=== PATIENT | female | born 1955 | race Caucasian/White ===

== ENCOUNTER 2019-03-02 16:42 | Inpatient (IN) | payer OTHER ==
[~2019-03-02] VITALS: Ht 170.2 cm; Wt 69.4 kg
[2019-03-02 16:53] VITALS: BP_SYST 191
--- NOTE | 2019-03-02 16:55 | NUR ---
Patient to ER bed 4 to gown for evaluation. Side rails up.
--- NOTE | 2019-03-02 17:00 | NUR ---
ER at bedside examining patient.
[2019-03-02] MEDS ORDERED: NACL 0.9% 1,000 ML IV ONE (17:02)
--- NOTE | 2019-03-02 17:13 | NUR ---
Pt bib Care BLS for extended stay hotel c/o increasing weakness,frequent fall and inability to perform ADL's . Pt is poor historian.
--- NOTE | 2019-03-02 17:20 | NUR ---
Radiology at bedside
--- NOTE | 2019-03-02 17:22 | NUR ---
# 20 gauge angiocath placed to LAC. Use of asceptic technique. Opsite placed over site. Blood return noted. Blood for lab drawn from site. Flushed with 10 cc of normal saline. No evidence of infiltration noted. Patient tolerated well.
--- NOTE | 2019-03-02 17:30 | NUR ---
# 14 FR straight catheter with use of sterile technique. Immediate return of 50 cc yellow urine noted. Pt tolerated procedure well.
[2019-03-02 17:31] LABS: EOSINOPHILS # (AUTO) 0.1 K/uL (0.0-0.4); EOSINOPHILS % (AUTO) 1.4 % (0.0-4.0); HEMATOCRIT 44.4 % (36-48); HEMOGLOBIN 15.1 g/dL (12.0-16.0); LYMPHOCYTES # (AUTO) 1.8 K/uL (1.0-5.5); LYMPHOCYTES % (AUTO) 33.3 % (20.5-51.5); MEAN CORPUSCULAR HEMOGLOBIN 27 pg (27-31); MEAN CORPUSCULAR HGB CONC 34 % (32-36); MEAN CORPUSCULAR VOLUME 78 fL (79.0-98.0); MONOCYTES # (AUTO) 0.5 K/uL (0.0-1.0); MONOCYTES % (AUTO) 9.3 % (1.7-9.3); PLATELET COUNT (AUTO) 256 K/uL (130-430); RED CELL DISTRIBUTION WIDTH 15.8 % (9.0-15.0); WHITE BLOOD COUNT (AUTO) 5.4 K/uL (4.8-10.8)
[2019-03-02 17:38] LABS: BASOPHILS % (AUTO) 0.2 % (0.0-2.0); NEUTROPHILS # (AUTO) 3.1 K/uL (1.8-7.7); NEUTROPHILS % (AUTO) 55.8 % (40.0-70.0)
[2019-03-02 17:43] LABS: CALCIUM 11.3 mg/dL (8.4-11.0); CREATININE 0.79 mg/dL (0.55-1.30); POTASSIUM 3.5 mmol/L (3.5-5.1)
[2019-03-02 17:49] LABS: ALBUMIN 3.6 g/dL (3.4-4.8); TOTAL BILIRUBIN 0.6 mg/dL (0.0-1.0)
[2019-03-02] MEDS ORDERED: KETOROLAC TROMETHAMINE 30 MG VIAL IVP ONE (18:00)
[2019-03-02] MEDS ORDERED: cefTRIAXone 1 GM IVPB PREMIX 50 ML IV ONE (18:00)
[2019-03-02 18:14] LABS: BILIRUBIN,URINE 1+ (NEGATIVE); BLOOD, URINE 1+ (NEGATIVE); CLARITY/URINE CLEAR (CLEAR); COLOR,URINE YELLOW (YELLOW); GLUCOSE,URINE NEGATIVE (NEGATIVE); KETONES,URINE 2+ (NEGATIVE); LEUKOCYTE ESTERASE ,URINE NEGATIVE (NEGATIVE); NITRITE, URINE NEGATIVE (NEGATIVE); PROTEIN URINE 1+ (NEGATIVE); UROBILINOGEN,URINE 0.2 (0.2-1.0)
[2019-03-02 18:34] LABS: BACTERIA,URINE FEW /HPF (None Seen)
[2019-03-02 18:35] LABS: MUCUS,URINE 3+ /LPF (None Seen)
--- NOTE | 2019-03-02 18:40 | NUR ---
Patient will be admitted to care of . Admitted to Telemetry unit. Will go to room 122A. Belongings list completed. Complete and up to date summary report printed. SBAR report to be given at bedside with opportunity for questions.
--- NOTE | 2019-03-02 18:43 | NUR ---
Medication reconciliation completed with information provided by pt. Any prior medication reconciliation on file was reviewed and corrected.
--- NOTE | 2019-03-02 19:05 | NUR ---
ADMISSION NOTE Received patient from ER via tamie, received report from ROZINA ALTMAN. Patient admitted with diagnosis of PNEUMONIA. Patient oriented to hospital routine, call light, toileting and safety-patient verbalized understanding.
--- NOTE | 2019-03-02 20:30 | NUR ---
INITIAL NOTE AT INITIAL ASSESSMENT, PATIENT IS RESTING IN BED, STABLE, NO SIGNS OF RESPIRATORY DISTRESS. PATIENT VERBALIZES TOLERABLE PAIN. PLAN OF CARE FOR THE EVENING IS COMMUNICATED WITH THE PATIENT. PATIENT SUCCESSFULLY DEMONSTRATES USAGE OF CALL LIGHT AT THIS TIME. BED IS LOCKED, ALARMED, AND AT THE LOWEST LEVEL. FALL, SAFETY, AND RESPIRATORY PRECAUTIONS WILL BE TAKEN THROUGHOUT THE SHIFT.
[2019-03-02 20:56] VITALS: BP_SYST 149
[2019-03-02] MEDS ORDERED: FLU VACC TS2019(65UP)/MF59C/PF 45 MCG/0.5 ML SYRINGE I.M. PRN (21:00)
--- NOTE | 2019-03-02 22:30 | NUR ---
HYGIENE CARE NOTE HYGIENE CARE IS PROVIDED AT THIS TIME, PATIENT TOLERATED WELL. FRESH LINEN IS PROVIDED, SHE IS REPOSITIONED FOR COMFORT. AT THIS TIME, PATIENT IS RESTING IN BED, STABLE, NO SIGNS OF RESPIRATORY DISTRESS. CALL LIGHT IS WITHIN REACH. BED IS LOCKED, ALARMED, AND AT THE LOWEST LEVEL.
[2019-03-02] MEDS ORDERED: IPRATROPIUM BROM 0.5 MG/2.5 ML VIAL.NEB (ATROVENT) INH PRN (23:30)
[2019-03-03] MEDS ORDERED: AZITHROMYCIN 500 MG in NS 250 ML IV SCH ×2
[2019-03-03] MEDS: HYDROcodone/ACETAMIN 5-325 MG TAB (NORCO/ VICODIN) PO PRN ×2 (00:19→08:51)
[2019-03-03] MEDS: ONDANSETRON HCL 4 MG/2 ML VIAL IVP PRN (00:19)
[2019-03-03] MEDS: NACL 0.9% 1,000 ML IV SCH ×2 (00:20→12:46)
[2019-03-03 00:30] VITALS: BP_SYST 145
--- NOTE | 2019-03-03 00:30 | NUR ---
PAIN NOTE PRN MEDICATION GIVEN FOR PATIENT'S PAIN AND NAUSEA COMPLAINT. SHE IS OTHERWISE STABLE. PATIENT IS RESTING IN BED, NO SIGNS OF RESPIRATORY DISTRESS. BED IS LOCKED, ALARMED, AND AT THE LOWEST LEVEL.
[2019-03-03 02:19] VITALS: BP_SYST 191
--- NOTE | 2019-03-03 02:30 | NUR ---
NOTE PATIENT IS SLEEPING, STABLE, NO SIGNS OF RESPIRATORY DISTRESS. BED IS LOCKED, ALARMED, AND AT THE LOWEST LEVEL.
[2019-03-03] MEDS ORDERED: ACETAMINOPHEN 325 MG TABLET PO PRN (04:00)
--- NOTE | 2019-03-03 04:00 | NUR ---
DR. NI ROUNDS DR. NI IS AT BEDSIDE AT THIS TIME DISCUSSING HER PLAN OF CARE FOR THE PATIENT. PATIENT IS STABLE, NO SIGNS OF RESPIRATORY DISTRESS. BED IS LOCKED, ALARMED, AND AT THE LOWEST LEVEL.
--- NOTE | 2019-03-03 05:00 | NUR ---
NOTE PATIENT IS SLEEPING, STABLE, NO SIGNS OF RESPIRATORY DISTRESS. BED IS LOCKED, ALARMED, AND AT THE LOWEST LEVEL.
--- NOTE | 2019-03-03 06:45 | NUR ---
CLOSING NOTE PATIENT SLEPT WELL THROUGHOUT THE NIGHT. AT THIS TIME, SHE IS RESTING IN BED, STABLE, NO SIGNS OF RESPIRATORY DISTRESS. CALL LIGHT IS WITHIN REACH. BED IS LOCKED, ALARMED, AND AT THE LOWEST LEVEL. FALL, SAFETY, AND RESPIRATORY PRECAUTIONS HAVE BEEN IN PLACE THROUGHOUT THE SHIFT. WILL CONTINUE TO MONITOR UNTIL SHIFT REPORT IS GIVEN AT BEDSIDE TO AM NURSE.
[2019-03-03 06:51] LABS: BASOPHILS # (AUTO) 0.1 K/uL (0.0-0.2); BASOPHILS % (AUTO) 1.2 % (0.0-2.0); EOSINOPHILS # (AUTO) 0.2 K/uL (0.0-0.4); EOSINOPHILS % (AUTO) 2.4 % (0.0-4.0); HEMATOCRIT 40.4 % (36-48); HEMOGLOBIN 13.7 g/dL (12.0-16.0); LYMPHOCYTES % (AUTO) 27.6 % (20.5-51.5); MEAN CORPUSCULAR HEMOGLOBIN 27 pg (27-31); MEAN CORPUSCULAR HGB CONC 34 % (32-36); MEAN CORPUSCULAR VOLUME 78 fL (79.0-98.0); MONOCYTES # (AUTO) 0.7 K/uL (0.0-1.0); MONOCYTES % (AUTO) 9.9 % (1.7-9.3); NEUTROPHILS # (AUTO) 4.3 K/uL (1.8-7.7); NEUTROPHILS % (AUTO) 58.9 % (40.0-70.0); PLATELET COUNT (AUTO) 239 K/uL (130-430); RED BLOOD CELL COUNT(AUTO) 5.16 MIL/uL (4.2-6.2); WHITE BLOOD COUNT (AUTO) 7.2 K/uL (4.8-10.8)
--- NOTE | 2019-03-03 06:53 | NUR ---
Nutrition Update Tigre Scale 15 noted. Pt admitted for Pneumonia Diet: 2gm Na BMI: 24 kg/m2 RD to follow per nutrition care standards.
[2019-03-03 07:01] LABS: ALANINE AMINOTRANSFERASE 12 U/L (12-78); ALBUMIN 2.9 g/dL (3.4-4.8); ANION GAP 5 (5-15); ASPARTATE AMINOTRANSFERASE 21 U/L (10-37); CALCIUM 10.2 mg/dL (8.4-11.0); CHLORIDE 106 mmol/L (98-107); CREATININE 0.72 mg/dL (0.55-1.30); GLUCOSE 105 mg/dL (70-99); POTASSIUM 3.6 mmol/L (3.5-5.1); SODIUM SERUM 141 mmol/L (136-145); TOTAL BILIRUBIN 0.6 mg/dL (0.0-1.0); UREA NITROGEN, BLOOD 34 mg/dL (8-21)
[2019-03-03 07:03] LABS: GFR AFRICAN AMERICAN 105 mL/min (>90)
[2019-03-03 07:12] LABS: PROTHROMBIN TIME > 90.0 SECS (9.5-12.5)
--- NOTE | 2019-03-03 07:50 | NUR ---
OPENING NOTE RECEIVED PATIENT AWAKE IN BED. ROOM AIR. NO ACUTE DISTRESS. NO SOB. RESPIRATION EVEN AND UNLABORED. SKIN WARM AND DRY TO TOUCH. IV INTACT AND PATENT. DISCUSSED PLAN OF CARE. BILAT SCDs IN PLACE. BED IN LOW AND LOCKED POSITION. SIDERAIL UP X3. BED ALARM ON. CALL LIGHT IN REACH. CONT TO MONITOR
[2019-03-03 08:00] VITALS: BP_SYST 154
--- NOTE | 2019-03-03 08:04 | NUR ---
MD NAT GUZMAN CALLED AT SPOKE WITH DR.REDDY ROBERSON [employer].
--- NOTE | 2019-03-03 08:45 | NUR ---
PHYSICAL THERAPY ORDER WAS RECEIVED AND THE CHART REVIEWED. SPOKE WITH RN AND AGREED TO HOLD EVALUATION UNTIL MD EXAMINATION DUE TO HIGH LAB VALUES FOR PT AND INR.
--- NOTE | 2019-03-03 08:52 | NUR ---
pain PATIENT C/O 6/10 BACK PAIN. VITAL SIGN STABLE. NORCO ADMINISTERED ORDERED, GORGE WELL. TEACHING DONE ON MEDICATION AND ASE. CONT TO MONITOR
[2019-03-03] MEDS: LORazepam 2 MG/ML VIAL IVP PRN (09:40)
--- NOTE | 2019-03-03 10:00 | NUR ---
/OFF UNIT SEEN AND EXAMINED BY AT BEDSIDE. THEN PATIENT TAKEN OFF UNIT VIA GURNEY TO MRI; PATIENT STABLE
--- NOTE | 2019-03-03 11:05 | NUR ---
ON UNIT FROM MRI PATIENT STABLE. AWAKE. DENIES PAIN. ALL NEEDS MET. CALL LIGHT IN REACH. CONT TO MONITOR
[2019-03-03 11:35] LABS: INR 1.1 (0.8-1.2)
--- NOTE | 2019-03-03 13:00 | NUR ---
NOTE PATIENT UP IN BED TALKING TO NEPHEW. DENIES PAIN AT THIS TIME. NO ACUTE DISTRESS. ALL NEEDS MET. CALL LIGHT IN REACH. CONT TO MONITOR
[2019-03-03 13:01] VITALS: BP_SYST 140
[2019-03-03 16:32] VITALS: BP_SYST 156
--- NOTE | 2019-03-03 16:50 | NUR ---
NOTE PATIENT RESTING IN BED. NO S/SX PAIN. NOTED RISE/FALL CHEST. NO ACUTE DISTRESS. NO SOB. SKIN WARM AND DRY TO TOUCH. ALL NEEDS MET. CONT TO MONITOR
[2019-03-03] MEDS: cefTRIAXone 1 GM IVPB PREMIX 50 ML IV SCH (17:17)
--- NOTE | 2019-03-03 18:38 | NUR ---
CLOSING NOTE PATIENT STABLE. SITTING UP IN BED. NO ACUTE DISTRESS. NO SOB. SKIN WARM AND DRY. ALL NEEDS MET. BED IN LOW AND LOCKED POSITION. SIDERAIL UPX3. BED ALARM ON. CALL LIGHT IN REACH. CONT TO MONITOR. WILL ENDORSE TO ONCOMING SHIFT.
--- NOTE | 2019-03-03 19:20 | NUR ---
Opening Note Received patient, resting in bed, awake. No s/sx of distress. Nonlabored breathing on room air. IVF infusing well via IV to LAC. Bed locked in lowest position, side rails up 3x, bed alarm on and call light in reach. Updated board and reviewed plan of care.
[2019-03-03 20:00] VITALS: BP_SYST 159
[2019-03-03] MEDS ORDERED: AZITHROMYCIN 500 MG in NS 250 ML IV ONE (20:00)
[2019-03-03] MEDS: FAMOTIDINE 20 MG TABLET PO SCH (20:33)
--- NOTE | 2019-03-03 20:41 | NUR ---
Medications Due medications given. Educated on side effects and she verbalized understanding. Removed bed tray and provided ice water and gelatin snack. No further needs. Will monitor.
[2019-03-03] MEDS: HYDROcodone/ACETAMIN 10-325 MG TAB PO PRN (22:12)
--- NOTE | 2019-03-03 22:17 | NUR ---
c/o of back pain Patient reporting back pain, 10/12. She was repositioned 20 minutes earlier by nurse transition assistant and is requesting medication. Administered Cylinder for severe pain as ordered. Will monitor. Safety precautions in place and call light w/in reach.
--- NOTE | 2019-03-04 00:15 | NUR ---
Rounds Patient resting w/ eyes closed, symmetrical rise and fall of chest, nonlabored breathing noted. IVF infusing well. Safety precautions in place and call light w/in reach.
[2019-03-04 00:38] VITALS: BP_SYST 100
--- NOTE | 2019-03-04 02:32 | NUR ---
Rounds Patient resting w/ eyes closed, symmetrical rise and fall of chest. IVF infusing well. Bed alarm on and call light w/in reach.
[2019-03-04] MEDS: NACL 0.9% 1,000 ML IV SCH ×2 (04:12→17:20)
[2019-03-04] MEDS: ONDANSETRON HCL 4 MG/2 ML VIAL IVP PRN ×3 (04:12→13:21)
--- NOTE | 2019-03-04 04:15 | NUR ---
Nausea - Zofran Patient awakened by IV pump alarm and has nausea. Administered Zofran for nausea as ordered. IVF fluids empty. Hung new bag of NS and infusing at 75 ml/hr as ordered. Patient reports nausea feeling is decreased and requested a salt cracker, it was provided. Will continue to monitor.
[2019-03-04] MEDS ORDERED: AZITHROMYCIN 250 MG TABLET PO SCH (06:00)
--- NOTE | 2019-03-04 07:30 | NUR ---
received SBAR from night worker,pt resting well in bed,care assumed.
[2019-03-04 07:59] LABS: BASOPHILS # (AUTO) 0.1 K/uL (0.0-0.2); BASOPHILS % (AUTO) 0.9 % (0.0-2.0); EOSINOPHILS # (AUTO) 0.1 K/uL (0.0-0.4); EOSINOPHILS % (AUTO) 1.6 % (0.0-4.0); HEMATOCRIT 38.2 % (36-48); HEMOGLOBIN 12.9 g/dL (12.0-16.0); LYMPHOCYTES # (AUTO) 1.7 K/uL (1.0-5.5); MEAN CORPUSCULAR HEMOGLOBIN 26 pg (27-31); MEAN CORPUSCULAR HGB CONC 34 % (32-36); MEAN CORPUSCULAR VOLUME 78 fL (79.0-98.0); MONOCYTES # (AUTO) 0.5 K/uL (0.0-1.0); MONOCYTES % (AUTO) 7.1 % (1.7-9.3); NEUTROPHILS # (AUTO) 5.2 K/uL (1.8-7.7); NEUTROPHILS % (AUTO) 68.4 % (40.0-70.0); PLATELET COUNT (AUTO) 186 K/uL (130-430); RED BLOOD CELL COUNT(AUTO) 4.89 MIL/uL (4.2-6.2); RED CELL DISTRIBUTION WIDTH 16.1 % (9.0-15.0); WHITE BLOOD COUNT (AUTO) 7.6 K/uL (4.8-10.8)
[2019-03-04 08:29] LABS: INR 1.1 (0.8-1.2); PROTHROMBIN TIME 11.2 SECS (9.5-12.5)
[2019-03-04 08:37] LABS: ALBUMIN 2.5 g/dL (3.4-4.8); CALCIUM 9.2 mg/dL (8.4-11.0); CREATININE 0.59 mg/dL (0.55-1.30); POTASSIUM 3.4 mmol/L (3.5-5.1); TOTAL BILIRUBIN 0.4 mg/dL (0.0-1.0)
[2019-03-04] MEDS: FAMOTIDINE 20 MG TABLET PO SCH (08:58)
[2019-03-04] MEDS ORDERED: CALCITONIN SALMON,SYNTHETIC 3.7 ML SPRAY.PUMP NS SCH (09:00)
--- NOTE | 2019-03-04 09:00 | NUR ---
c/o nausea again,give zofran 4mg iv as prn order,and am meds due,continue IVF.
[2019-03-04] MEDS ORDERED: POTASSIUM CHLORIDE 20 MEQ TAB.PRT.SR PO ONE (09:30)
[2019-03-04 10:30] VITALS: BP_SYST 142
[2019-03-04] MEDS ORDERED: CALC3.8S NS (11:12)
[2019-03-04] MEDS ORDERED: AZIT250T PO (11:12)
[2019-03-04] MEDS ORDERED: ACET325T53 PO (11:12)
[2019-03-04] MEDS ORDERED: FAMO20TA8 PO (11:12)
--- NOTE | 2019-03-04 11:30 | NUR ---
came and seen pt.updated dr of pt condition,orders received and carried out.
--- NOTE | 2019-03-04 12:00 | NUR ---
vss,spoke to [facility] corrections caseworker julissa over the phone.d/c plan to SNF on progress.
[2019-03-04 12:39] VITALS: BP_SYST 149
[2019-03-04] MEDS: HYDROcodone/ACETAMIN 10-325 MG TAB PO PRN ×2 (13:21→18:15)
--- NOTE | 2019-03-04 14:00 | NUR ---
c/o severe back pain and nausea again,give norco 10/325mg po as prn order for pain and zofran IV again for nausea.incontinent of urine and BM,pericare rendered,no skin breakdown noted.
--- NOTE | 2019-03-04 16:00 | NUR ---
pt is anxious,and restless,give ativan 1 mg IV as prn order.
[2019-03-04] MEDS: LORazepam 2 MG/ML VIAL IVP PRN (16:03)
[2019-03-04 16:55] VITALS: BP_SYST 113
[2019-03-04] MEDS: cefTRIAXone 1 GM IVPB PREMIX 50 ML IV SCH (17:23)
--- NOTE | 2019-03-04 18:00 | NUR ---
julissa from [facility] called and got bed in [facility], called and notified,d/c pt to SNF per order.called pt cinthia amado @[phone],and notified him of pt d/c to [place] this evenig.called julissa @[phone],and she said ambulance [employer] goods spot picker @8pm
--- NOTE | 2019-03-04 19:05 | NUR ---
OPENING NOTES Late entry due to patient care. Bedside report received from dayshift nurse. Patient received lying in bed, AOx4, no s/s of acute distress noted. Breathing is even and unlabored. HOB raised, patient finishing up dinner. Patient is aware that she is getting transferred to [place]. Call light with patient. Bed alarm on. Bed is locked and at lowest position. Will continue to monitor.
[2019-03-04 20:00] VITALS: BP_SYST 135
[2019-03-04 20:15] VITALS: BP_SYST 135
--- NOTE | 2019-03-04 20:50 | NUR ---
DISCHARGE Bedside report given to Hand, EMT from [facility]. Patient in bed, AOx4, no s/s of acute distress noted. Breathing is even and unlabored. IV removed, catheter fully intact, no active bleeding noted. Wrist band removed, replaced with temporary name band. Telemonitor removed. All needs met. Patient escorted out via gurney by chief clerk.
== END 2019-03-04 20:50 | DRG 552 ==
LOC: SED 16:42 → STU 18:26
PROVIDERS: ADMIT Internal Medicine Hospice and Palliative Medicine; ATTEND Internal Medicine Hospice and Palliative Medicine
DX: M48.04 Spinal stenosis, thoracic region (principal); M48.54XA Collapsed vertebra, not elsewhere classified, thoracic region, initial encounter for fracture; G89.29 Other chronic pain; M19.90 Unspecified osteoarthritis, unspecified site; K21.9 Gastro-esophageal reflux disease without esophagitis; Z79.899 Other long term (current) drug therapy
CPT/HCPCS: 36415; 71045; 72100-TC; 72148; 80053; 81000-TC; 82550-TC; 83605; 84484; 85025; 85610-TC; 87040-TC; 93005; 93306; 96361; 96375; 97530-GP; 99285; G0378; J0456; J0696; J1885; J2060; J2405; J7030; J7050; Q0144